=== PATIENT | female | born 1970 | race Two or more races ===

== ENCOUNTER 2016-07-30 10:34 | Inpatient (IN) | payer MEDICAID ==
[~2016-07-30] VITALS: Ht 157.5 cm; Wt 101.5 kg
[~2016-07-30 10:34] MED LIST: ALBUAER3 IN; MON10T PO
[2016-07-30] MEDS ORDERED: ONDANSETRON ODT 4 MG TAB PO ONE (10:45)
[2016-07-30 11:23] LABS: Basophils # (auto) 0 uL; Basophils % (auto) 0.4 % (0.0-2.0); Eosinophils # (auto) 0.1 uL; Eosinophils % (auto) 0.7 % (0.0-7.0); Hematocrit 44.3 % (36.0-46.0); Lymphocytes # (auto) 1.3 uL; Lymphocytes % (auto) 17.8 % (10.0-50.0); Mean Corpuscular Hemoglobin 27.8 pg (28.0-32.0); Mean Corpuscular Hgb Conc. 33.9 g/dL (32.0-36.0); Mean Platelet Volume 8.2 fL (7.4-10.4); Monocytes # (auto) 0.3 uL; Neutrophils # (auto) 5.5 uL; Neutrophils % (auto) 77.1 % (37.0-80.0); Platelet Count (auto) 282 10^3/uL (140-450); White Blood Cell 7.1 10^3/uL (4.4-10.8)
[2016-07-30] MEDS ORDERED: ASPirin 81 mg TAB PO ONE ×2 (11:45→19:15)
[2016-07-30 12:37] LABS: INR 0.93 (0.9-1.15); Partial Thromboplastin Time 28.4 sec (22.64-33.71)
[2016-07-30 12:44] LABS: Albumin 3.8 g/dL (3.4-5.0); Alkaline Phosphatase 122 U/L (45-117); Anion Gap 9 (5-15); Aspartate Aminotransferase 27 U/L (15-37); BUN/Creatinine Ratio 14.8; Bilirubin, Total 0.4 mg/dL (0.2-1.0); Blood Urea Nitrogen 8 mg/dL (7-18); Carbon Dioxide 27 mmol/L (21-32); Chloride 105 mmol/L (98-107); GFR African American 155 mL/min; GFR Non-African American 128 mL/min; Glucose 170 mg/dL (74-106); Magnesium 1.9 mg/dL (1.6-2.6); Potassium 3.7 mmol/L (3.5-5.1); Sodium 141 mmol/L (136-145); Total Protein 7.6 g/dL (6.4-8.2)
[2016-07-30 12:49] LABS: B-Type Natriuretic Peptide 25.31 pg/mL (0-100)
[2016-07-30 13:02] LABS: Temperature: 23.7 C (20.0-25.0)
[2016-07-30] MEDS ORDERED: MORPHINE SULF INJ 2 MG/ML SYRINGE 1ML IV ONE (15:30)
[2016-07-30] MEDS ORDERED: ONDANSETRON HCL 4 MG/2 ML VIAL IV ONE (15:30)
[2016-07-30] MEDS ORDERED: NITROGLYCERIN 0.4 MG SL TAB SL PRN (18:45)
[2016-07-30] MEDS ORDERED: ACETAMINOPHEN 500 MG TAB PO PRN (18:45)
[2016-07-30] MEDS ORDERED: LACTULOSE 20Gm/30ML SOLN PO PRN (18:45)
[2016-07-30] MEDS ORDERED: MORPHINE SULF INJ 2 MG/ML SYRINGE 1ML IV PRN ×2 (18:45)
[2016-07-30] MEDS ORDERED: DEXTROSE (50%) 50ML SYRG IV PRN (18:45)
[2016-07-30] MEDS ORDERED: LORazepam 0.5 MG TAB PO PRN (18:45)
[2016-07-30] MEDS ORDERED: TEMAZEPAM 15 MG CAP PO PRN (18:45)
[2016-07-30] MEDS ORDERED: NITROGLYCERIN 0.2MG/HR TOPICAL PATCH TD ONE (19:15)
[2016-07-30] MEDS: SODIUM CHLORIDE 0.9% 1,000 ML IV SCH (19:20)
[2016-07-30 20:10] VITALS: BP 154/81
[2016-07-30 20:16] LABS: Amylase 35 U/L (25-115)
[2016-07-30] MEDS: PROMETHAZINE HCL 25 MG/ML 1ML IV PRN (21:17)
[2016-07-30] MEDS: HYDROcodone-ACET 5/325MG TAB PO PRN (21:17)
[2016-07-30] MEDS: ACCU-CHEK COMFORT CURVE STRIP VI SCH (21:49)
[2016-07-30] MEDS: ATORVASTATIN 20 MG TAB PO SCH (21:58)
[2016-07-30] MEDS: METOPROLOL TARTRATE 25 MG TAB PO SCH (21:59)
[2016-07-30 22:58] VITALS: BP 154/81
[2016-07-31] MEDS ORDERED: ASPI81CH43 PO (00:10)
[2016-07-31] MEDS ORDERED: CLOP75TA28 PO (00:10)
[2016-07-31 00:38] LABS: Urine RBC None Seen /hpf (0 - 4)
[2016-07-31 00:52] LABS: Urine Bilirubin Negative (Negative); Urine Blood Negative /uL (Negative); Urine Color Yellow (Yellow); Urine Glucose Normal (Normal); Urine Hyaline Cast FEW /lpf (0 - 2); Urine Ketone Negative (Negative); Urine Mucus FEW (None Seen); Urine Nitrite Negative (Negative); Urine Squamous Epithelial Cell FEW /hpf (<5); Urine Urobilinogen Normal (Negative)
[2016-07-31] MEDS: PROMETHAZINE HCL 25 MG/ML 1ML IV PRN (04:27)
[2016-07-31] MEDS: ACCU-CHEK COMFORT CURVE STRIP VI SCH ×4 (05:41→23:32)
[2016-07-31 05:47] VITALS: BP 131/76
[2016-07-31 07:16] LABS: Cholesterol 194 mg/dL (< 200); HDL Cholesterol 49 mg/dL (40-59); LDL Cholesterol 137 mg/dL (< 100); Triglycerides 121 mg/dL (< 150)
[2016-07-31 09:00] VITALS: BP 129/75
[2016-07-31] MEDS: SODIUM CHLORIDE 0.9% 1,000 ML IV SCH ×2 (09:00→22:08)
[2016-07-31] MEDS: NITROGLYCERIN 0.2MG/HR TOPICAL PATCH TD SCH ×2 (10:17→10:45)
[2016-07-31] MEDS: ASPirin 81 mg TAB PO SCH (10:17)
[2016-07-31] MEDS: METOPROLOL TARTRATE 25 MG TAB PO SCH ×2 (10:18→22:08)
[2016-07-31 14:25] VITALS: BP 131/71
[2016-07-31 15:59] VITALS: BP 120/60
[2016-07-31] MEDS: HYDROcodone-ACET 5/325MG TAB PO PRN ×2 (17:18→23:28)
[2016-07-31 20:00] VITALS: BP 124/74
[2016-07-31] MEDS: ATORVASTATIN 20 MG TAB PO SCH (22:08)
[2016-07-31 22:36] VITALS: BP 126/74
[2016-07-31] MEDS ORDERED: LORATADINE 10 MG TAB PO SCH (22:51)
[2016-08-01] MEDS: ACCU-CHEK COMFORT CURVE STRIP VI SCH (05:49)
[2016-08-01 05:51] VITALS: BP 108/68
[2016-08-01 07:32] VITALS: BP 118/74
[2016-08-01 08:00] VITALS: BP 118/74
[2016-08-01] MEDS: ASPirin 81 mg TAB PO SCH (09:45)
[2016-08-01] MEDS: METOPROLOL TARTRATE 25 MG TAB PO SCH (09:46)
[2016-08-01 10:13] VITALS: BP 118/74
[2016-08-01 11:00] VITALS: BP 154/83
== END 2016-08-01 11:11 | disposition home or self-care (01) | DRG 198 ==
LOC: ER 10:34 → OVERFLOW 11:57 → OBSVTOIN 11:58 → CENTRAL 19:35 → TELE-CENTR 20:05
PROVIDERS: ADMIT Family Medicine; ATTEND Internal Medicine
DX: R07.9 Chest pain, unspecified (principal); I25.2 Old myocardial infarction; I25.110 Atherosclerotic heart disease of native coronary artery with unstable angina pectoris; Z68.41 Body mass index [BMI] 40.0-44.9, adult; I10 Essential (primary) hypertension; E66.01 Morbid (severe) obesity due to excess calories; Z95.5 Presence of coronary angioplasty implant and graft; I25.10 Atherosclerotic heart disease of native coronary artery without angina pectoris; Z82.49 Family history of ischemic heart disease and other diseases of the circulatory system; Z80.9 Family history of malignant neoplasm, unspecified; R10.9 Unspecified abdominal pain
CPT/HCPCS: 36415; 71020; 80053; 80061; 80307; 81001; 82150; 82550; 82962; 83036; 83690; 83735; 83880; 84443; 84484; 85025; 85379; 85610; 85652; 85730; 86141; 93005; 93971; 94761; 96374; 96375; G0378; J2405; Q0162

== ENCOUNTER 2016-10-23 15:33 | Inpatient (IN) | payer MEDICAID ==
[~2016-10-23] VITALS: Ht 157.5 cm; Wt 102.3 kg
[~2016-10-23 15:33] MED LIST changes: -ALBUAER3 IN; +ASPI81CH43 PO; +CLOP75TA28 PO; -MON10T PO
[2016-10-23 16:12] LABS: Basophils # (auto) 0 uL; Basophils % (auto) 0.3 % (0.0-2.0); CONDITION Y; Eosinophils # (auto) 0.1 uL; Eosinophils % (auto) 0.8 % (0.0-7.0); Hematocrit 44.7 % (36.0-46.0); Hemoglobin 14.8 g/dL (12.2-16.2); Lymphocytes # (auto) 2.2 uL; Lymphocytes % (auto) 22.1 % (10.0-50.0); Mean Corpuscular Hemoglobin 27.8 pg (28.0-32.0); Mean Corpuscular Hgb Conc. 33.2 g/dL (32.0-36.0); Mean Corpuscular Volume 83.7 fL (80.0-100.0); Mean Platelet Volume 8.5 fL (7.4-10.4); Monocytes # (auto) 0.6 uL; Neutrophils # (auto) 7.1 uL; Neutrophils % (auto) 70.8 % (37.0-80.0); Platelet Count (auto) 252 10^3/uL (140-450); Red Cell Distribution Width 13.8 % (11.6-16.0)
[2016-10-23 16:27] LABS: Albumin 3.7 g/dL (3.4-5.0); Anion Gap 9 (5-15); Aspartate Aminotransferase 21 U/L (15-37); Blood Urea Nitrogen 9 mg/dL (7-18); Calcium 8.8 mg/dL (8.5-10.1); Carbon Dioxide 25 mmol/L (21-32); Chloride 107 mmol/L (98-107); GFR African American 158 mL/min; GFR Non-African American 131 mL/min; Glucose 79 mg/dL (74-106); Magnesium 2.3 mg/dL (1.6-2.6); Potassium 3.9 mmol/L (3.5-5.1); Sodium 141 mmol/L (136-145)
[2016-10-23 16:32] LABS: Alkaline Phosphatase 123 U/L (45-117); Bilirubin, Total 0.3 mg/dL (0.2-1.0); Total Protein 7.5 g/dL (6.4-8.2)
[2016-10-23] MEDS ORDERED: MORPHINE SULF INJ 2 MG/ML SYRINGE 1ML IV ONE (21:45)
[2016-10-23] MEDS ORDERED: ONDANSETRON HCL 4 MG/2 ML VIAL IV ONE (21:45)
[2016-10-23] MEDS ORDERED: cloNIDine HCL 0.1 MG TAB PO ONE (22:00)
[2016-10-23 23:15] LABS: B-Type Natriuretic Peptide 62.33 pg/mL (0-100)
[2016-10-23 23:23] LABS: Temperature: 22.8 C (20.0-25.0)
[2016-10-23] MEDS ORDERED: MORPHINE SULF INJ 2 MG/ML SYRINGE 1ML IV PRN (23:45)
[2016-10-23] MEDS ORDERED: NITROGLYCERIN 0.4 MG SL TAB SL PRN (23:45)
[2016-10-23] MEDS ORDERED: cloNIDine HCL 0.1 MG TAB PO PRN (23:45)
[2016-10-23] MEDS ORDERED: ATORVASTATIN 20 MG TAB PO ONE (23:45)
[2016-10-24] VITALS (7 sets, daily range): BP systolic 108–152; BP diastolic 75–86
[2016-10-24] MEDS: ACETAMINOPHEN 325 MG TAB PO PRN (02:13)
[2016-10-24] MEDS: TEMAZEPAM 15 MG CAP PO PRN ×2 (02:13→22:05)
[2016-10-24 05:38] LABS: Basophils # (auto) 0 uL; Basophils % (auto) 0.2 % (0.0-2.0); CONDITION Y; Eosinophils # (auto) 0.1 uL; Eosinophils % (auto) 0.9 % (0.0-7.0); Hematocrit 38.2 % (36.0-46.0); Hemoglobin 12.7 g/dL (12.2-16.2); Lymphocytes # (auto) 1.9 uL; Lymphocytes % (auto) 26.6 % (10.0-50.0); Mean Corpuscular Hemoglobin 27.7 pg (28.0-32.0); Mean Corpuscular Hgb Conc. 33.3 g/dL (32.0-36.0); Mean Corpuscular Volume 83.3 fL (80.0-100.0); Mean Platelet Volume 8.4 fL (7.4-10.4); Monocytes # (auto) 0.6 uL; Monocytes % (auto) 7.6 % (0.0-12.0); Neutrophils # (auto) 4.7 uL; Neutrophils % (auto) 64.7 % (37.0-80.0); Platelet Count (auto) 229 10^3/uL (140-450); Red Cell Distribution Width 14.1 % (11.6-16.0); White Blood Cell 7.3 10^3/uL (4.4-10.8)
[2016-10-24 05:53] LABS: Albumin 2.9 g/dL (3.4-5.0); Anion Gap 9 (5-15); Aspartate Aminotransferase 17 U/L (15-37); BUN/Creatinine Ratio 16.4; Blood Urea Nitrogen 10 mg/dL (7-18); Carbon Dioxide 27 mmol/L (21-32); Chloride 107 mmol/L (98-107); GFR African American 135 mL/min; GFR Non-African American 111 mL/min; Glucose 98 mg/dL (74-106); Potassium 3.7 mmol/L (3.5-5.1); Sodium 143 mmol/L (136-145)
[2016-10-24 05:58] LABS: Alkaline Phosphatase 97 U/L (45-117); Bilirubin, Total 0.3 mg/dL (0.2-1.0); Total Protein 6.1 g/dL (6.4-8.2)
[2016-10-24] MEDS: HYDROcodone-ACET 5/325MG TAB PO PRN ×3 (08:25→20:39)
[2016-10-24] MEDS: CLOPIDOGREL BISULFATE 75 MG TAB PO SCH (09:51)
[2016-10-24] MEDS: ENOXAPARIN SOD 40 MG/0.4 ML SYRINGE SC SCH (09:51)
[2016-10-24] MEDS: ASPirin 81 mg TAB PO SCH (09:51)
[2016-10-24] MEDS: amLODIPine BESYLATE 5 MG TAB PO SCH (09:52)
[2016-10-24] MEDS: FAMOTIDINE 20 MG TAB PO SCH ×2 (09:52→22:06)
[2016-10-24] MEDS: MONTELUKAST SODIUM 10 MG TAB PO SCH (09:52)
[2016-10-24] MEDS ORDERED: FUROSEMIDE 100 MG/10ML VIAL IV ONE (15:00)
[2016-10-24] MEDS ORDERED: POTASSIUM CHL 10% (20 MEQ/15ML) ORAL SOLN PO ONE (15:00)
[2016-10-24] MEDS: ATORVASTATIN 20 MG TAB PO SCH (22:06)
[2016-10-25 05:30] VITALS: BP 125/81
[2016-10-25 06:49] LABS: Potassium 3.9 mmol/L (3.5-5.1)
[2016-10-25 06:55] LABS: Albumin 3.3 g/dL (3.4-5.0); BUN/Creatinine Ratio 27.5; Calcium 8.5 mg/dL (8.5-10.1)
[2016-10-25 06:58] LABS: Bilirubin, Total 0.4 mg/dL (0.2-1.0); Total Protein 6.7 g/dL (6.4-8.2)
[2016-10-25 07:31] VITALS: BP 129/77
[2016-10-25] MEDS: HYDROcodone-ACET 5/325MG TAB PO PRN ×3 (08:49→20:20)
[2016-10-25] MEDS: ENOXAPARIN SOD 40 MG/0.4 ML SYRINGE SC SCH (09:36)
[2016-10-25] MEDS: CLOPIDOGREL BISULFATE 75 MG TAB PO SCH (09:36)
[2016-10-25] MEDS: MONTELUKAST SODIUM 10 MG TAB PO SCH (09:36)
[2016-10-25] MEDS: ASPirin 81 mg TAB PO SCH (09:36)
[2016-10-25] MEDS: FAMOTIDINE 20 MG TAB PO SCH ×2 (09:36→22:01)
[2016-10-25] MEDS: amLODIPine BESYLATE 5 MG TAB PO SCH (09:36)
[2016-10-25] MEDS ORDERED: FUROSEMIDE 40 MG/4 ML VIAL IV ONE (10:45)
[2016-10-25] MEDS: SPIRONOLACTONE 25 MG TAB PO SCH ×2 (10:54→17:55)
[2016-10-25] MEDS: POTASSIUM CHL 20 Meq TABLET PO SCH ×2 (10:54→22:01)
[2016-10-25] MEDS: ONDANSETRON HCL 4 MG/2 ML VIAL IV PRN ×2 (11:00→17:12)
[2016-10-25 14:15] VITALS: BP 139/56
[2016-10-25 16:19] VITALS: BP 127/87
[2016-10-25] MEDS ORDERED: diphenhdrAMINE HCL 25 MG CAP PO ONE (17:00)
[2016-10-25] MEDS: ACETAMINOPHEN 325 MG TAB PO PRN (17:15)
[2016-10-25] MEDS: ATORVASTATIN 20 MG TAB PO SCH (22:01)
[2016-10-26 06:00] VITALS: BP 123/83
[2016-10-26] MEDS: SPIRONOLACTONE 25 MG TAB PO SCH ×2 (06:14→18:23)
[2016-10-26] MEDS: HYDROcodone-ACET 5/325MG TAB PO PRN (06:50)
[2016-10-26] MEDS: ONDANSETRON HCL 4 MG/2 ML VIAL IV PRN ×2 (08:41→16:44)
[2016-10-26 09:00] VITALS: BP 143/86
[2016-10-26] MEDS: CLOPIDOGREL BISULFATE 75 MG TAB PO SCH (09:29)
[2016-10-26] MEDS: ENOXAPARIN SOD 40 MG/0.4 ML SYRINGE SC SCH (09:29)
[2016-10-26] MEDS: ASPirin 81 mg TAB PO SCH (09:30)
[2016-10-26] MEDS: amLODIPine BESYLATE 5 MG TAB PO SCH (09:31)
[2016-10-26] MEDS: POTASSIUM CHL 20 Meq TABLET PO SCH ×2 (09:31→21:17)
[2016-10-26] MEDS: FUROSEMIDE 40 MG/4 ML VIAL IV SCH (09:31)
[2016-10-26] MEDS: MONTELUKAST SODIUM 10 MG TAB PO SCH (09:31)
[2016-10-26] MEDS: FAMOTIDINE 20 MG TAB PO SCH ×2 (09:31→21:18)
[2016-10-26] MEDS: DOCUSATE SOD 100 MG CAP PO SCH ×2 (12:00→20:57)
[2016-10-26 12:25] VITALS: BP 144/83
[2016-10-26] MEDS: ACETAMINOPHEN 325 MG TAB PO PRN (16:43)
[2016-10-26 17:12] VITALS: BP 151/98
[2016-10-26 20:38] LABS: Urine Bilirubin Negative (Negative); Urine Color Yellow (Yellow); Urine Glucose Normal (Normal); Urine Urobilinogen Normal (Negative)
[2016-10-26 20:39] LABS: Urine Ketone Negative (Negative); Urine Nitrite Negative (Negative); Urine RBC 52 /hpf (0 - 4); Urine Squamous Epithelial Cell FEW /hpf (<5); Urine WBC Clumps PRESENT /hpf (None Seen)
[2016-10-26] MEDS: ATORVASTATIN 20 MG TAB PO SCH (21:18)
[2016-10-26 21:31] LABS: Urine Blood 2+ /uL (Negative)
[2016-10-26 21:49] VITALS: BP 161/100
[2016-10-26] MEDS ORDERED: METOPROLOL SUCCINATE XL 50 MG TAB PO ONE (23:00)
[2016-10-26] MEDS ORDERED: LISINOPRIL 20 MG TAB PO ONE (23:00)
[2016-10-26] MEDS ORDERED: CIPROFLOXACIN HCL 500 MG TAB PO ONE (23:00)
[2016-10-26] MEDS: MORPHINE SULF INJ 2 MG/ML SYRINGE 1ML IV PRN (23:32)
[2016-10-27] MEDS: ONDANSETRON HCL 4 MG/2 ML VIAL IV PRN (03:19)
[2016-10-27] MEDS: MORPHINE SULF INJ 2 MG/ML SYRINGE 1ML IV PRN (03:43)
[2016-10-27 04:53] VITALS: BP 132/90
[2016-10-27] MEDS: SPIRONOLACTONE 25 MG TAB PO SCH ×2 (05:56→17:40)
[2016-10-27] MEDS ORDERED: ADENOSINE 86 MG in GIVE UN-DILUTED 0 ML IV ONE (09:00)
[2016-10-27] MEDS: MONTELUKAST SODIUM 10 MG TAB PO SCH (10:00)
[2016-10-27] MEDS: FAMOTIDINE 20 MG TAB PO SCH ×2 (10:00→22:14)
[2016-10-27] MEDS: FUROSEMIDE 40 MG/4 ML VIAL IV SCH (10:00)
[2016-10-27] MEDS: ENOXAPARIN SOD 40 MG/0.4 ML SYRINGE SC SCH (10:00)
[2016-10-27] MEDS: CLOPIDOGREL BISULFATE 75 MG TAB PO SCH (10:00)
[2016-10-27] MEDS: DOCUSATE SOD 100 MG CAP PO SCH ×2 (10:50→22:13)
[2016-10-27] MEDS: METOPROLOL SUCCINATE XL 50 MG TAB PO SCH ×2 (10:52→22:14)
[2016-10-27] MEDS: CIPROFLOXACIN HCL 500 MG TAB PO SCH ×2 (10:53→22:13)
[2016-10-27] MEDS: LISINOPRIL 20 MG TAB PO SCH (10:53)
[2016-10-27] MEDS: ASPirin 81 mg TAB PO SCH (10:53)
[2016-10-27] MEDS: amLODIPine BESYLATE 5 MG TAB PO SCH (10:54)
[2016-10-27] MEDS: POTASSIUM CHL 20 Meq TABLET PO SCH ×2 (10:54→22:14)
[2016-10-27 12:09] VITALS: BP 150/82
[2016-10-27 16:58] VITALS: BP 101/62
[2016-10-27] MEDS ORDERED: LORazepam 2MG/ML-1ML VIAL IV PRN (17:15)
[2016-10-27] MEDS: ACETAMINOPHEN 325 MG TAB PO PRN (20:39)
[2016-10-27 22:00] VITALS: BP 123/67
[2016-10-27] MEDS ORDERED: ATORVASTATIN 20 MG TAB PO SCH (22:00)
[2016-10-28] MEDS: SPIRONOLACTONE 25 MG TAB PO SCH (05:37)
[2016-10-28 07:06] LABS: Basophils # (auto) 0 uL; Basophils % (auto) 0.2 % (0.0-2.0); CONDITION Y; Eosinophils # (auto) 0.1 uL; Eosinophils % (auto) 0.7 % (0.0-7.0); Hematocrit 45.1 % (36.0-46.0); Hemoglobin 15.3 g/dL (12.2-16.2); Lymphocytes # (auto) 1.9 uL; Lymphocytes % (auto) 20.6 % (10.0-50.0); Mean Corpuscular Hemoglobin 28.4 pg (28.0-32.0); Mean Corpuscular Volume 83.6 fL (80.0-100.0); Mean Platelet Volume 8.4 fL (7.4-10.4); Monocytes # (auto) 0.8 uL; Monocytes % (auto) 8.6 % (0.0-12.0); Neutrophils # (auto) 6.5 uL; Neutrophils % (auto) 69.9 % (37.0-80.0); Platelet Count (auto) 258 10^3/uL (140-450); Red Cell Distribution Width 14.3 % (11.6-16.0); White Blood Cell 9.3 10^3/uL (4.4-10.8)
[2016-10-28 07:45] LABS: Potassium 4.6 mmol/L (3.5-5.1)
[2016-10-28 07:59] LABS: Albumin 3.5 g/dL (3.4-5.0); Calcium 8.6 mg/dL (8.5-10.1); Total Protein 7.1 g/dL (6.4-8.2)
[2016-10-28 08:00] VITALS: BP 144/75
[2016-10-28 08:14] LABS: Bilirubin, Total 0.6 mg/dL (0.2-1.0)
[2016-10-28 09:00] VITALS: BP 107/58
[2016-10-28] MEDS: ENOXAPARIN SOD 40 MG/0.4 ML SYRINGE SC SCH (09:37)
[2016-10-28] MEDS: ACETAMINOPHEN 325 MG TAB PO PRN (09:37)
[2016-10-28] MEDS: CIPROFLOXACIN HCL 500 MG TAB PO SCH (09:37)
[2016-10-28] MEDS: MONTELUKAST SODIUM 10 MG TAB PO SCH (09:38)
[2016-10-28] MEDS: DOCUSATE SOD 100 MG CAP PO SCH (09:38)
[2016-10-28] MEDS: CLOPIDOGREL BISULFATE 75 MG TAB PO SCH (09:38)
[2016-10-28] MEDS: POTASSIUM CHL 20 Meq TABLET PO SCH (09:38)
[2016-10-28] MEDS: ASPirin 81 mg TAB PO SCH (09:38)
[2016-10-28] MEDS: FAMOTIDINE 20 MG TAB PO SCH (09:51)
[2016-10-28] MEDS: FUROSEMIDE 40 MG/4 ML VIAL IV SCH (10:00)
[2016-10-28] MEDS: amLODIPine BESYLATE 5 MG TAB PO SCH (10:00)
[2016-10-28] MEDS: LISINOPRIL 20 MG TAB PO SCH (10:00)
[2016-10-28] MEDS: METOPROLOL SUCCINATE XL 50 MG TAB PO SCH (10:00)
[2016-10-28 12:00] VITALS: BP 107/58
[2016-10-28 13:00] VITALS: BP 125/80
== END 2016-10-28 14:20 | disposition home or self-care (01) | DRG 194 ==
LOC: ER 15:38 → TELE 15:39 → TELE-CENTR 10-24 01:40
PROVIDERS: ADMIT Nurse Practitioner; ATTEND Internal Medicine
DX: I50.33 Acute on chronic diastolic (congestive) heart failure (principal); Z68.41 Body mass index [BMI] 40.0-44.9, adult; N39.0 Urinary tract infection, site not specified; M94.0 Chondrocostal junction syndrome [Tietze]; I11.0 Hypertensive heart disease with heart failure; I25.2 Old myocardial infarction; E66.01 Morbid (severe) obesity due to excess calories; I25.10 Atherosclerotic heart disease of native coronary artery without angina pectoris; Z91.14 Patient's other noncompliance with medication regimen; Z79.02 Long term (current) use of antithrombotics/antiplatelets; Z79.82 Long term (current) use of aspirin; Z79.899 Other long term (current) drug therapy; Z95.5 Presence of coronary angioplasty implant and graft; Z88.5 Allergy status to narcotic agent; Z80.9 Family history of malignant neoplasm, unspecified; Z82.49 Family history of ischemic heart disease and other diseases of the circulatory system
CPT/HCPCS: 36415; 70450; 71020; 78452; 80053; 81001; 83735; 83880; 84484; 84702; 85025; 87086; 87088; 87186; 93005; 93017; 93306; 93886; 96374; 96375; 99291; J0153; J2405

== ENCOUNTER 2017-08-21 23:41 | Inpatient (IN) | payer MEDICAID, OTHER ==
[~2017-08-21] VITALS: Ht 157.5 cm; Wt 105.9 kg
[2017-08-22 01:44] LABS: Basophils # (auto) 0 uL; Basophils % (auto) 0.4 % (0.0-2.0); Eosinophils # (auto) 0.1 uL; Eosinophils % (auto) 1.3 % (0.0-7.0); Hematocrit 45.3 % (36.0-46.0); Hemoglobin 15.3 g/dL (12.2-16.2); Lymphocytes # (auto) 1.9 uL; Lymphocytes % (auto) 24.2 % (10.0-50.0); Mean Corpuscular Hemoglobin 28.1 pg (28.0-32.0); Mean Corpuscular Hgb Conc. 33.7 g/dL (32.0-36.0); Mean Corpuscular Volume 83.2 fL (80.0-100.0); Monocytes # (auto) 0.5 uL; Monocytes % (auto) 6.9 % (0.0-12.0); Neutrophils # (auto) 5.2 uL; Neutrophils % (auto) 67.2 % (37.0-80.0); Nucleated Red Blood Cells % 0.1 %; Platelet Count (auto) 259 10^3/uL (140-450); Red Blood Cells 5.44 10^6/uL (4.0-5.20); Red Cell Distribution Width 13.8 % (11.8-14.3); White Blood Cell 7.7 10^3/uL (4.4-10.8)
[2017-08-22 02:02] LABS: Alanine Aminotransferase 66 U/L (13-56); Albumin 3.8 g/dL (3.4-5.0); Anion Gap 9 (5-15); Aspartate Aminotransferase 35 U/L (15-37); BUN/Creatinine Ratio 25.8; Blood Urea Nitrogen 16 mg/dL (7-18); Calcium 8.5 mg/dL (8.5-10.1); Carbon Dioxide 23 mmol/L (21-32); Chloride 111 mmol/L (98-107); GFR African American 132 mL/min; GFR Non-African American 109 mL/min; Glucose 112 mg/dL (74-106); Magnesium 2.1 mg/dL (1.6-2.6); Potassium 4.1 mmol/L (3.5-5.1); Sodium 143 mmol/L (136-145)
[2017-08-22 02:07] LABS: Alkaline Phosphatase 160 U/L (45-117); Bilirubin, Total 0.3 mg/dL (0.2-1.0); Total Protein 7.7 g/dL (6.4-8.2)
[2017-08-22 02:13] LABS: Urine Bacteria FEW /hpf (None Seen); Urine Blood Negative /uL (Negative); Urine Specific Gravity 1.019 (1.001-1.035); Urine WBC 15 /hpf (0 - 5)
[2017-08-22] MEDS ORDERED: ASPirin 325 MG TAB PO ONE (05:15)
[2017-08-22] MEDS ORDERED: LORazepam 0.5 MG TAB PO ONE (05:15)
[2017-08-22] MEDS ORDERED: KETOROLAC TROMETH 30 MG/ML 1ML VIAL IV ONE (05:15)
[2017-08-22] MEDS ORDERED: ONDANSETRON HCL 4 MG/2 ML VIAL IV PRN (07:00)
[2017-08-22] MEDS ORDERED: ACETAMINOPHEN 500 MG TAB PO PRN (07:00)
[2017-08-22] MEDS ORDERED: NITROGLYCERIN 0.4 MG SL TAB SL PRN (07:00)
[2017-08-22] MEDS ORDERED: NEOMYCIN-BACITRACIN-POLYM UNITDOSE PKG TOP OINT TOP ONE (07:36)
[2017-08-22] MEDS ORDERED: cefTRIAXone 1GM/10ml IVPUSH 10 ML IV ONE (07:45)
[2017-08-22] MEDS: METOPROLOL TARTRATE 25 MG TAB PO SCH ×2 (10:57→21:02)
[2017-08-22] MEDS: LISINOPRIL 20 MG TAB PO SCH (10:58)
[2017-08-22] MEDS: CLOPIDOGREL BISULFATE 75 MG TAB PO SCH (10:58)
[2017-08-22 13:00] VITALS: BP 134/75
[2017-08-22] MEDS: HYDROcodone-ACET 5/325MG TAB PO PRN (14:01)
[2017-08-22 17:00] VITALS: BP_SYST 113; BP_SYST 152; BP_DIAS 101; BP_DIAS 59
[2017-08-22 22:00] VITALS: BP 119/80
[2017-08-23 05:16] VITALS: BP 110/70
[2017-08-23 05:56] LABS: Basophils # (auto) 0 uL; Basophils % (auto) 0.3 % (0.0-2.0); Eosinophils # (auto) 0.1 uL; Eosinophils % (auto) 1.9 % (0.0-7.0); Hematocrit 41.1 % (36.0-46.0); Lymphocytes # (auto) 1.8 uL; Lymphocytes % (auto) 26.4 % (10.0-50.0); Mean Corpuscular Hemoglobin 28.3 pg (28.0-32.0); Mean Corpuscular Hgb Conc. 34.1 g/dL (32.0-36.0); Mean Corpuscular Volume 83.1 fL (80.0-100.0); Monocytes # (auto) 0.5 uL; Monocytes % (auto) 7.6 % (0.0-12.0); Neutrophils # (auto) 4.4 uL; Neutrophils % (auto) 63.8 % (37.0-80.0); Nucleated Red Blood Cells % 0.1 %; Platelet Count (auto) 232 10^3/uL (140-450); Red Blood Cells 4.94 10^6/uL (4.0-5.20); Red Cell Distribution Width 13.6 % (11.8-14.3); White Blood Cell 6.8 10^3/uL (4.4-10.8)
[2017-08-23 06:16] LABS: Calcium 8.6 mg/dL (8.5-10.1); Potassium 4.2 mmol/L (3.5-5.1)
[2017-08-23 06:21] LABS: BUN/Creatinine Ratio 25.9
[2017-08-23 09:00] VITALS: BP 105/60
[2017-08-23] MEDS ORDERED: cefTRIAXone 1GM/10ml IVPUSH 10 ML IV SCH (09:00)
[2017-08-23] MEDS ORDERED: ASPirin-EC 81 mg tab PO SCH (10:00)
[2017-08-23] MEDS: CLOPIDOGREL BISULFATE 75 MG TAB PO SCH (10:08)
[2017-08-23] MEDS: METOPROLOL TARTRATE 25 MG TAB PO SCH (10:09)
[2017-08-23] MEDS: LISINOPRIL 20 MG TAB PO SCH (10:09)
[2017-08-23] MEDS: HYDROcodone-ACET 5/325MG TAB PO PRN (10:13)
[2017-08-23 16:01] VITALS: BP 105/62
== END 2017-08-23 16:45 | disposition home or self-care (01) | DRG 198 ==
LOC: ER 23:41 → TELE 23:42 → TELE-WESTW 08-22 09:57
PROVIDERS: ADMIT Nurse Practitioner Family; ATTEND Nurse Practitioner Family
DX: I25.119 Atherosclerotic heart disease of native coronary artery with unspecified angina pectoris (principal); N30.00 Acute cystitis without hematuria; I10 Essential (primary) hypertension; K21.9 Gastro-esophageal reflux disease without esophagitis; J45.909 Unspecified asthma, uncomplicated; E66.01 Morbid (severe) obesity due to excess calories; R00.2 Palpitations; M79.602 Pain in left arm; I25.2 Old myocardial infarction; Z95.5 Presence of coronary angioplasty implant and graft; Z68.41 Body mass index [BMI] 40.0-44.9, adult; Z88.5 Allergy status to narcotic agent
CPT/HCPCS: 36415; 71045; 80048; 80053; 81001; 81025; 83735; 83880; 84443; 84484; 85025; 87086; 93005; 96374; 96375; J1885

== ENCOUNTER 2017-12-11 22:23 | Emergency (ER) | payer MEDICAID ==
[~2017-12-11] VITALS: Ht 157.5 cm; Wt 108.9 kg
[2017-12-12 00:34] LABS: Basophils # (auto) 0 uL; Basophils % (auto) 0.4 % (0.0-2.0); Eosinophils # (auto) 0.1 uL; Eosinophils % (auto) 1.7 % (0.0-7.0); Hematocrit 44.7 % (36.0-46.0); Hemoglobin 14.6 g/dL (12.2-16.2); Lymphocytes # (auto) 2.3 uL; Lymphocytes % (auto) 28.2 % (10.0-50.0); Mean Corpuscular Hemoglobin 27.2 pg (28.0-32.0); Mean Corpuscular Hgb Conc. 32.7 g/dL (32.0-36.0); Mean Corpuscular Volume 83.3 fL (80.0-100.0); Monocytes # (auto) 0.6 uL; Monocytes % (auto) 7.2 % (0.0-12.0); Neutrophils % (auto) 62.5 % (37.0-80.0); Platelet Count (auto) 234 10^3/uL (140-450); Red Blood Cells 5.36 10^6/uL (4.0-5.20); Red Cell Distribution Width 13.7 % (11.8-14.3)
[2017-12-12 00:51] LABS: Alanine Aminotransferase 72 U/L (13-56); Albumin 3.7 g/dL (3.4-5.0); Anion Gap 9 (5-15); Aspartate Aminotransferase 42 U/L (15-37); BUN/Creatinine Ratio 29.5; Blood Urea Nitrogen 18 mg/dL (7-18); Calcium 8.6 mg/dL (8.5-10.1); Carbon Dioxide 25 mmol/L (21-32); Chloride 107 mmol/L (98-107); GFR African American 134 mL/min; GFR Non-African American 111 mL/min; Glucose 101 mg/dL (74-106); Magnesium 2.1 mg/dL (1.6-2.6); Sodium 141 mmol/L (136-145)
[2017-12-12 00:56] LABS: Alkaline Phosphatase 132 U/L (45-117); Bilirubin, Total 0.3 mg/dL (0.2-1.0); Total Protein 7.5 g/dL (6.4-8.2)
[2017-12-12 01:06] LABS: INR 0.88 (0.9-1.15); Prothrombin Time 9.5 sec (9.27-12.13)
[2017-12-12 07:24] VITALS: BP 146/87
== END 2017-12-12 08:04 | disposition home or self-care (01) ==
LOC: ER 22:36
DX: R07.89 Other chest pain (principal); I25.10 Atherosclerotic heart disease of native coronary artery without angina pectoris; I10 Essential (primary) hypertension; I25.2 Old myocardial infarction; Z88.5 Allergy status to narcotic agent; Z79.01 Long term (current) use of anticoagulants; Z79.82 Long term (current) use of aspirin; Z98.61 Coronary angioplasty status
CPT/HCPCS: 36415; 71046; 80053; 83735; 84484; 85025; 85610; 85730; 93005

== ENCOUNTER 2018-04-14 22:57 | Emergency (ER) | payer MEDICAID ==
[~2018-04-14] VITALS: Ht 157.5 cm; Wt 104.3 kg
[2018-04-14] MEDS ORDERED: cloNIDine HCL 0.1 MG TAB ONE (23:24)
[2018-04-14] MEDS ORDERED: cloNIDine HCL 0.1 MG TAB PO ONE (23:30)
[2018-04-15 00:01] LABS: Basophils # (auto) 0 uL; Basophils % (auto) 0.3 % (0.0-2.0); Eosinophils # (auto) 0.1 uL; Eosinophils % (auto) 0.7 % (0.0-7.0); Hematocrit 44.3 % (36.0-46.0); Hemoglobin 14.9 g/dL (12.2-16.2); Lymphocytes # (auto) 2.1 uL; Lymphocytes % (auto) 18.9 % (10.0-50.0); Mean Corpuscular Hemoglobin 27.8 pg (28.0-32.0); Mean Corpuscular Hgb Conc. 33.5 g/dL (32.0-36.0); Mean Corpuscular Volume 82.9 fL (80.0-100.0); Monocytes # (auto) 0.6 uL; Monocytes % (auto) 5.4 % (0.0-12.0); Neutrophils # (auto) 8.4 uL; Neutrophils % (auto) 74.7 % (37.0-80.0); Platelet Count (auto) 250 10^3/uL (140-450); Red Blood Cells 5.34 10^6/uL (4.0-5.20); Red Cell Distribution Width 13.4 % (11.8-14.3); White Blood Cell 11.2 10^3/uL (4.4-10.8)
[2018-04-15 00:17] LABS: Albumin 3.8 g/dL (3.4-5.0); Amylase 40 U/L (25-115); Anion Gap 8 (5-15); Blood Urea Nitrogen 17 mg/dL (7-18); Calcium 8.9 mg/dL (8.5-10.1); Carbon Dioxide 26 mmol/L (21-32); Chloride 106 mmol/L (98-107); GFR African American 129 mL/min; GFR Non-African American 107 mL/min; Glucose 131 mg/dL (74-106); Lipase 123 U/L (73-393); Magnesium 1.9 mg/dL (1.6-2.6); Potassium 3.9 mmol/L (3.5-5.1); Sodium 140 mmol/L (136-145)
[2018-04-15 00:19] LABS: INR 0.9 (0.9-1.15); Partial Thromboplastin Time 28.7 sec (23.78-33.04); Prothrombin Time 9.7 sec (9.27-12.13)
[2018-04-15 00:26] LABS: Alanine Aminotransferase 40 U/L (13-56); Alkaline Phosphatase 178 U/L (45-117); Aspartate Aminotransferase 22 U/L (15-37); Bilirubin, Total 0.4 mg/dL (0.2-1.0); Total Protein 7.8 g/dL (6.4-8.2)
[2018-04-15 01:35] LABS: Urine Bacteria MOD /hpf (None Seen); Urine Blood 2+ /uL (Negative); Urine Specific Gravity 1.004 (1.001-1.035); Urine WBC 41 /hpf (0 - 5)
[2018-04-15 03:49] VITALS: BP 164/81
== END 2018-04-15 05:14 | disposition left against medical advice (07) ==
LOC: ER 23:02
DX: R10.2 Pelvic and perineal pain (principal); Z53.21 Procedure and treatment not carried out due to patient leaving prior to being seen by health care provider
CPT/HCPCS: 36415; 80053; 81001; 82150; 83690; 83735; 84484; 85025; 85610; 85730; 86850; 86900; 86901; 93005

== ENCOUNTER 2018-10-04 11:50 | Emergency (ER) | payer MEDICAID ==
[~2018-10-04] VITALS: Ht 157.5 cm; Wt 104.3 kg
[2018-10-04 15:29] VITALS: BP 141/80
== END 2018-10-04 15:45 | disposition home or self-care (01) ==
LOC: ER 11:50
DX: S86.911A Strain of unspecified muscle(s) and tendon(s) at lower leg level, right leg, initial encounter (principal); E78.5 Hyperlipidemia, unspecified; I10 Essential (primary) hypertension; I25.2 Old myocardial infarction; Z88.6 Allergy status to analgesic agent; Z98.61 Coronary angioplasty status; X58.XXXA Exposure to other specified factors, initial encounter; Y93.89 Activity, other specified; Y92.89 Other specified places as the place of occurrence of the external cause; Y99.8 Other external cause status
CPT/HCPCS: 93971

== ENCOUNTER 2019-12-28 13:38 | Emergency (ER) | payer MEDICAID ==
[~2019-12-28] VITALS: Ht 157.5 cm; Wt 113.4 kg
[2019-12-28 13:58] VITALS: BP 143/78
== END 2019-12-28 15:27 | disposition home or self-care (01) ==
LOC: ER 13:38
DX: S61.511A Laceration without foreign body of right wrist, initial encounter (principal); E78.5 Hyperlipidemia, unspecified; I10 Essential (primary) hypertension; I25.2 Old myocardial infarction; Z98.61 Coronary angioplasty status; W22.8XXA Striking against or struck by other objects, initial encounter; Y93.89 Activity, other specified; Y92.89 Other specified places as the place of occurrence of the external cause; Y99.8 Other external cause status
CPT/HCPCS: 12001

== ENCOUNTER 2020-09-26 18:40 | Emergency (ER) | payer MEDICAID ==
[~2020-09-26] VITALS: Ht 157.5 cm; Wt 104.3 kg
[2020-09-26 19:29] LABS: Basophils # (auto) 0.1 10 ^3/uL (0-0.2); Basophils % (auto) 0.6 % (0.0-2.0); Eosinophils # (auto) 0.2 10 ^3/uL (0-0.8); Eosinophils % (auto) 1.7 % (0.0-7.0); Hematocrit 43.1 % (36.0-46.0); Hemoglobin 14.4 g/dL (12.2-16.2); Lymphocytes # (auto) 2.4 10 ^3/uL (0.4-5.4); Lymphocytes % (auto) 26.3 % (10.0-50.0); Mean Corpuscular Hemoglobin 27.3 pg (28.0-32.0); Mean Corpuscular Hgb Conc. 33.5 g/dL (32.0-36.0); Mean Corpuscular Volume 81.7 fL (80.0-100.0); Monocytes # (auto) 0.5 10 ^3/uL (0-1.3); Monocytes % (auto) 5.5 % (0.0-12.0); Neutrophils # (auto) 5.9 10 ^3/uL (1.6-8.6); Neutrophils % (auto) 65.9 % (37.0-80.0); Nucleated Red Blood Cells % 0.2 %; Red Blood Cells 5.27 10^6/uL (4.0-5.20); Red Cell Distribution Width 14.1 % (11.8-14.3)
[2020-09-26 19:36] LABS: Albumin 3.7 g/dL (3.4-5.0); Anion Gap 4 (5-15); Calcium 8.8 mg/dL (8.5-10.1); Carbon Dioxide 26 mmol/L (21-32); Chloride 110 mmol/L (98-107); Glucose 135 mg/dL (74-106); Sodium 140 mmol/L (136-145)
[2020-09-26 19:41] LABS: Alanine Aminotransferase 43 U/L (13-56); Alkaline Phosphatase 155 U/L (45-117); Aspartate Aminotransferase 24 U/L (15-37); BUN/Creatinine Ratio 18.2; Bilirubin, Total 0.3 mg/dL (0.2-1.0); Blood Urea Nitrogen 12 mg/dL (7-18); GFR African American 121 mL/min; GFR Non-African American 100 mL/min; Total Protein 7.4 g/dL (6.4-8.2)
[2020-09-27 06:58] VITALS: BP 137/79
== END 2020-09-27 07:14 | disposition home or self-care (01) ==
LOC: ER 18:43
DX: R20.2 Paresthesia of skin (principal); R07.89 Other chest pain; R51.9 Headache, unspecified; I10 Essential (primary) hypertension; I25.2 Old myocardial infarction; I25.10 Atherosclerotic heart disease of native coronary artery without angina pectoris; E78.5 Hyperlipidemia, unspecified; Z88.5 Allergy status to narcotic agent; Z79.82 Long term (current) use of aspirin; Z79.899 Other long term (current) drug therapy; Z98.890 Other specified postprocedural states
CPT/HCPCS: 36415; 70450; 71045; 80053; 84484; 85025; 93005

== ENCOUNTER 2021-05-28 13:17 | Emergency (ER) | payer MEDICAID ==
[~2021-05-28] VITALS: Ht 157.5 cm; Wt 104.3 kg
[2021-05-28 13:17] VITALS: BP 179/84
[2021-05-28] MEDS ORDERED: BENZOCAINE (DENTAL) 20 % SPRAY 60ML MT ONE (14:45)
[2021-05-28] MEDS ORDERED: KETOROLAC TROMETH 60MG/2ML VIAL IM ONE (14:45)
== END 2021-05-28 15:06 | disposition home or self-care (01) ==
LOC: ER 13:17
DX: K02.9 Dental caries, unspecified (principal); I10 Essential (primary) hypertension; I25.2 Old myocardial infarction; E78.5 Hyperlipidemia, unspecified; Z79.01 Long term (current) use of anticoagulants; Z79.82 Long term (current) use of aspirin; Z88.5 Allergy status to narcotic agent
CPT/HCPCS: 96372; 99283; J1885

== ENCOUNTER 2021-08-10 17:36 | Emergency (ER) | payer MEDICAID ==
[~2021-08-10] VITALS: Ht 157.5 cm; Wt 104.3 kg
[2021-08-10 20:07] LABS: Eosinophils # (auto) 0 10 ^3/uL (0-0.8); Monocytes # (auto) 0.4 10 ^3/uL (0-1.3); Nucleated Red Blood Cells % 0.1 %; Red Cell Distribution Width 13.8 % (11.8-14.3)
[2021-08-10 20:09] LABS: Urine Bacteria NONE SEEN /hpf (None Seen); Urine Blood Negative /uL (Negative); Urine Specific Gravity 1.007 (1.001-1.035); Urine WBC 18 /hpf (0 - 5)
[2021-08-10 20:10] LABS: Basophils # (auto) 0.1 10 ^3/uL (0-0.2); Basophils % (auto) 0.5 % (0.0-2.0); Eosinophils % (auto) 0.1 % (0.0-7.0); Hematocrit 46.9 % (36.0-46.0); Hemoglobin 16.1 g/dL (12.2-16.2); Lymphocytes # (auto) 1.3 10 ^3/uL (0.4-5.4); Lymphocytes % (auto) 10.4 % (10.0-50.0); Mean Corpuscular Hemoglobin 28.2 pg (28.0-32.0); Mean Corpuscular Hgb Conc. 34.4 g/dL (32.0-36.0); Mean Corpuscular Volume 82.2 fL (80.0-100.0); Monocytes % (auto) 3.7 % (0.0-12.0); Neutrophils # (auto) 10.2 10 ^3/uL (1.6-8.6); Neutrophils % (auto) 85.3 % (37.0-80.0); Red Blood Cells 5.71 10^6/uL (4.0-5.20)
[2021-08-10 20:22] LABS: Albumin 3.7 g/dL (3.4-5.0); BUN/Creatinine Ratio 24.6; Calcium 9.3 mg/dL (8.5-10.1); Potassium 4.4 mmol/L (3.5-5.1)
[2021-08-10 20:24] LABS: INR 0.94 (0.9-1.15); Partial Thromboplastin Time 28.2 sec (23.6-33.0)
[2021-08-10 20:25] LABS: Bilirubin, Total 0.4 mg/dL (0.2-1.0)
[2021-08-10 20:52] VITALS: BP 163/84
== END 2021-08-10 21:15 | disposition home or self-care (01) ==
LOC: ER 17:36
DX: R06.00 Dyspnea, unspecified (principal); I10 Essential (primary) hypertension; I25.10 Atherosclerotic heart disease of native coronary artery without angina pectoris; I25.2 Old myocardial infarction; E78.5 Hyperlipidemia, unspecified; Z79.01 Long term (current) use of anticoagulants; Z79.82 Long term (current) use of aspirin; Z88.5 Allergy status to narcotic agent
CPT/HCPCS: 36415; 71045; 80053; 81001; 83880; 84484; 85025; 85610; 85730; 93005

== ENCOUNTER 2021-09-21 22:20 | Emergency (ER) | payer MEDICAID ==
[2021-09-21 22:20] VITALS: BP 161/92
[2021-09-21 23:38] LABS: Basophils # (auto) 0 10 ^3/uL (0-0.2); Basophils % (auto) 0.3 % (0.0-2.0); Eosinophils # (auto) 0.1 10 ^3/uL (0-0.8); Eosinophils % (auto) 0.6 % (0.0-7.0); Hematocrit 43.3 % (36.0-46.0); Hemoglobin 14.6 g/dL (12.2-16.2); Lymphocytes # (auto) 2.1 10 ^3/uL (0.4-5.4); Lymphocytes % (auto) 18.9 % (10.0-50.0); Mean Corpuscular Hemoglobin 27.3 pg (28.0-32.0); Mean Corpuscular Hgb Conc. 33.7 g/dL (32.0-36.0); Mean Corpuscular Volume 81.2 fL (80.0-100.0); Monocytes # (auto) 0.6 10 ^3/uL (0-1.3); Monocytes % (auto) 5.7 % (0.0-12.0); Neutrophils # (auto) 8.4 10 ^3/uL (1.6-8.6); Neutrophils % (auto) 74.5 % (37.0-80.0); Red Blood Cells 5.34 10^6/uL (4.0-5.20); Red Cell Distribution Width 13.6 % (11.8-14.3); White Blood Cell 11.2 10^3/uL (4.4-10.8)
[2021-09-21 23:43] LABS: Urine Bacteria MOD /hpf (None Seen); Urine Blood 3+ /uL (Negative); Urine Specific Gravity 1.003 (1.001-1.035); Urine WBC 91 /hpf (0 - 5)
[2021-09-21 23:55] LABS: Calcium 9.3 mg/dL (8.5-10.1); Potassium 3.8 mmol/L (3.5-5.1)
[2021-09-22 00:04] LABS: BUN/Creatinine Ratio 19.7; Bilirubin, Total 0.6 mg/dL (0.2-1.0); Total Protein 7.6 g/dL (6.4-8.2)
[2021-09-22] MEDS ORDERED: ACETAMINOPHEN 325 MG TAB PO ONE (02:00)
[2021-09-22] MEDS ORDERED: CEPH-322 PO (06:03)
== END 2021-09-22 08:47 | disposition left against medical advice (07) ==
LOC: ER 22:20
DX: N30.00 Acute cystitis without hematuria (principal); R74.8 Abnormal levels of other serum enzymes; I10 Essential (primary) hypertension; I25.2 Old myocardial infarction; I25.10 Atherosclerotic heart disease of native coronary artery without angina pectoris; E78.5 Hyperlipidemia, unspecified; Z79.01 Long term (current) use of anticoagulants; Z79.82 Long term (current) use of aspirin; Z88.5 Allergy status to narcotic agent
CPT/HCPCS: 36415; 74176; 76705; 80053; 81001; 81025; 85025

== ENCOUNTER 2021-12-05 11:11 | Emergency (ER) | payer MEDICAID ==
[~2021-12-05] VITALS: Ht 157.5 cm; Wt 104.5 kg
[~2021-12-05 11:11] MED LIST changes: +CEPH-322 PO
[2021-12-05 11:36] VITALS: BP 174/81
[2021-12-05] MEDS ORDERED: methylPREDNISolone SOD SUCC 125 MG/2 ML VL IM ONE (12:15)
[2021-12-05] MEDS ORDERED: diphenhdrAMINE HCL 50 MG/1 ML VL IM ONE (12:15)
[2021-12-05 12:34] LABS: Urine Bacteria NONE SEEN /hpf (None Seen); Urine Blood Negative /uL (Negative); Urine Specific Gravity 1.009 (1.001-1.035); Urine WBC 2 /hpf (0 - 5)
[2021-12-05 12:44] LABS: Basophils # (auto) 0 10 ^3/uL (0-0.2); Basophils % (auto) 0.3 % (0.0-2.0); Eosinophils # (auto) 0.1 10 ^3/uL (0-0.8); Eosinophils % (auto) 0.9 % (0.0-7.0); Hematocrit 43.1 % (36.0-46.0); Hemoglobin 14.6 g/dL (12.2-16.2); Lymphocytes # (auto) 1.7 10 ^3/uL (0.4-5.4); Lymphocytes % (auto) 22.4 % (10.0-50.0); Mean Corpuscular Hemoglobin 27.7 pg (28.0-32.0); Mean Corpuscular Hgb Conc. 33.8 g/dL (32.0-36.0); Monocytes # (auto) 0.6 10 ^3/uL (0-1.3); Monocytes % (auto) 7.4 % (0.0-12.0); Neutrophils # (auto) 5.2 10 ^3/uL (1.6-8.6); Nucleated Red Blood Cells % 0.1 %; Red Blood Cells 5.25 10^6/uL (4.0-5.20); Red Cell Distribution Width 13.7 % (11.8-14.3); White Blood Cell 7.5 10^3/uL (4.4-10.8)
[2021-12-05 12:47] LABS: Alcohol, Urine < 3.0 mg/dL (0-10); Amphetamine Screen, Urine NEGATIVE (NEGATIVE); Barbiturate Scree,Urine NEGATIVE (NEGATIVE); Benzodiazephine Screen, Urine NEGATIVE (NEGATIVE); Cannabinoid Screen, Urine NEGATIVE (NEGATIVE); Cocaine Screen, Urine NEGATIVE (NEGATIVE); Opiate Scree,Urine NEGATIVE (NEGATIVE); Phencyclidine Screen, Urine NEGATIVE (NEGATIVE)
[2021-12-05 12:54] LABS: Albumin 3.5 g/dL (3.4-5.0); Calcium 8.9 mg/dL (8.5-10.1); Potassium 3.7 mmol/L (3.5-5.1)
[2021-12-05 12:58] LABS: BUN/Creatinine Ratio 23.6; Bilirubin, Total 0.4 mg/dL (0.2-1.0); Total Protein 7.3 g/dL (6.4-8.2)
[2021-12-05] MEDS ORDERED: TRIA0.1O TOP (13:16)
[2021-12-05] MEDS ORDERED: HYDR50CA PO (13:16)
== END 2021-12-05 13:24 | disposition home or self-care (01) ==
LOC: ER 11:11
DX: L29.9 Pruritus, unspecified (principal); R73.9 Hyperglycemia, unspecified; I10 Essential (primary) hypertension; I25.10 Atherosclerotic heart disease of native coronary artery without angina pectoris; E78.5 Hyperlipidemia, unspecified; Z79.82 Long term (current) use of aspirin; Z79.01 Long term (current) use of anticoagulants; Z79.899 Other long term (current) drug therapy; Z88.5 Allergy status to narcotic agent
CPT/HCPCS: 36415; 80053; 80307; 81001; 85025; 96372; 99283; J1200

== ENCOUNTER 2022-07-21 10:34 | Emergency (ER) | payer MEDICAID ==
[~2022-07-21] VITALS: Ht 157.5 cm; Wt 101.1 kg
[~2022-07-21 10:34] MED LIST changes: +HYDR50CA PO; +TRIA0.1O TOP
[2022-07-21 12:20] LABS: Basophils # (auto) 0 10 ^3/uL (0-0.2); Basophils % (auto) 0.3 % (0.0-2.0); Eosinophils # (auto) 0.1 10 ^3/uL (0-0.8); Eosinophils % (auto) 1.1 % (0.0-7.0); Hematocrit 43.7 % (36.0-46.0); Hemoglobin 14.7 g/dL (12.2-16.2); Lymphocytes # (auto) 1.6 10 ^3/uL (0.4-5.4); Lymphocytes % (auto) 25.5 % (10.0-50.0); Mean Corpuscular Hemoglobin 27.4 pg (28.0-32.0); Mean Corpuscular Hgb Conc. 33.6 g/dL (32.0-36.0); Mean Corpuscular Volume 81.7 fL (80.0-100.0); Monocytes # (auto) 0.4 10 ^3/uL (0-1.3); Monocytes % (auto) 6.5 % (0.0-12.0); Neutrophils # (auto) 4.1 10 ^3/uL (1.6-8.6); Neutrophils % (auto) 66.6 % (37.0-80.0); Nucleated Red Blood Cells % 0.1 %; Red Blood Cells 5.35 10^6/uL (4.0-5.20); Red Cell Distribution Width 14.1 % (11.8-14.3); White Blood Cell 6.1 10^3/uL (4.4-10.8)
[2022-07-21] MEDS ORDERED: IBU600T PO (12:47)
[2022-07-21 12:48] LABS: Albumin 3.9 g/dL (3.4-5.0); Calcium 9.4 mg/dL (8.5-10.1); Potassium 4.1 mmol/L (3.5-5.1)
[2022-07-21 12:52] LABS: Bilirubin, Total 0.5 mg/dL (0.2-1.0); Total Protein 7.1 g/dL (6.4-8.2)
[2022-07-21] MEDS ORDERED: HYDROcodone-ACET 5/325MG TAB PO ONE (13:00)
[2022-07-21 13:15] LABS: Urine Bacteria FEW /hpf (None Seen); Urine Blood Negative /uL (Negative); Urine Specific Gravity 1.007 (1.001-1.035); Urine WBC 6 /hpf (0 - 5)
[2022-07-21] MEDS ORDERED: NITR-87 PO (14:46)
[2022-07-21 15:00] VITALS: BP 144/78
[2022-07-21] MEDS ORDERED: ONDA-144 PO (15:06)
== END 2022-07-21 15:12 | disposition home or self-care (01) ==
LOC: ER 10:34
DX: R51.9 Headache, unspecified (principal); N39.0 Urinary tract infection, site not specified; I10 Essential (primary) hypertension; I25.10 Atherosclerotic heart disease of native coronary artery without angina pectoris; E78.5 Hyperlipidemia, unspecified
CPT/HCPCS: 36415; 70450; 80053; 81001; 84484; 85025

== ENCOUNTER 2022-08-13 11:38 | Emergency (ER) | payer MEDICAID ==
[~2022-08-13] VITALS: Ht 157.5 cm; Wt 100.9 kg
[~2022-08-13 11:38] MED LIST changes: -CEPH-322 PO; +CEPH250C PO; +IBU600T PO; +NITR-87 PO; +ONDA-144 PO
[2022-08-13 13:18] LABS: Urine Bacteria FEW /hpf (None Seen); Urine Blood Negative /uL (Negative); Urine Mucus FEW (None Seen); Urine Specific Gravity 1.003 (1.001-1.035); Urine WBC 2 /hpf (0 - 5)
[2022-08-13 13:21] LABS: Basophils # (auto) 0 10 ^3/uL (0-0.2); Basophils % (auto) 0.3 % (0.0-2.0); Eosinophils # (auto) 0.1 10 ^3/uL (0-0.8); Eosinophils % (auto) 1.6 % (0.0-7.0); Hematocrit 41.5 % (36.0-46.0); Hemoglobin 14.1 g/dL (12.2-16.2); Lymphocytes # (auto) 1.8 10 ^3/uL (0.4-5.4); Lymphocytes % (auto) 26.6 % (10.0-50.0); Mean Corpuscular Hgb Conc. 33.8 g/dL (32.0-36.0); Mean Corpuscular Volume 82.8 fL (80.0-100.0); Monocytes # (auto) 0.5 10 ^3/uL (0-1.3); Neutrophils # (auto) 4.4 10 ^3/uL (1.6-8.6); Neutrophils % (auto) 64.5 % (37.0-80.0); Nucleated Red Blood Cells % 0.1 %; Red Blood Cells 5.02 10^6/uL (4.0-5.20); White Blood Cell 6.8 10^3/uL (4.4-10.8)
[2022-08-13 13:43] LABS: Albumin 3.8 g/dL (3.4-5.0); Calcium 8.7 mg/dL (8.5-10.1)
[2022-08-13 13:46] LABS: BUN/Creatinine Ratio 21.6 (10.0-20.0); Bilirubin, Total 0.5 mg/dL (0.2-1.0)
[2022-08-13] MEDS ORDERED: IPRATROPIUM BROM 0.5 MG/2.5ML INH SOL NEB ONE (15:15)
[2022-08-13] MEDS ORDERED: cefTRIAXone 1GM/50ML D5W 50 ML IV ONE (15:15)
[2022-08-13] MEDS ORDERED: ALBUTEROL SULF 2.5 MG/0.5ML(0.5%) NEB SOLN NEB ONE (15:15)
[2022-08-13] MEDS ORDERED: DexAMETHasone SOD PHOS 10MG/1ML VIAL INJ IM ONE (15:15)
[2022-08-13] MEDS ORDERED: PRED20TA2 PO (19:28)
[2022-08-13] MEDS ORDERED: PENICILLIN G BENZ 1200000 UNITS/2 ML SYRG IM ONE (19:30)
[2022-08-13] MEDS ORDERED: KETOROLAC TROMETH 30 MG/ML 1ML VIAL IV ONE (19:45)
[2022-08-13] MEDS ORDERED: ONDANSETRON ODT 4 MG TAB PO ONE (19:45)
[2022-08-13] MEDS ORDERED: HYDROcodone-ACET 5/325MG TAB PO ONE (19:45)
[2022-08-13] MEDS ORDERED: AUG875T PO (21:22)
[2022-08-13 22:46] VITALS: BP 133/67
== END 2022-08-13 22:47 | disposition home or self-care (01) ==
LOC: ER 11:38
DX: J32.9 Chronic sinusitis, unspecified (principal); R05.9 Cough, unspecified; J45.909 Unspecified asthma, uncomplicated; I10 Essential (primary) hypertension; I25.10 Atherosclerotic heart disease of native coronary artery without angina pectoris; E78.5 Hyperlipidemia, unspecified; Z98.890 Other specified postprocedural states
CPT/HCPCS: 36415; 70450; 71045; 80053; 81001; 84484; 85025; 87070; 87880; 94640; 96365; 96372; 99285; J0696; J1100; J7644; Q0162; J1885

== ENCOUNTER 2022-12-16 16:45 | Emergency (ER) | payer MEDICAID ==
[~2022-12-16] VITALS: Ht 154.9 cm; Wt 101.8 kg
[~2022-12-16 16:45] MED LIST changes: +AUG875T PO; +PRED20TA2 PO
[2022-12-16 16:52] VITALS: BP 141/87; RESP 18; O2SAT 97
[2022-12-16 17:37] VITALS: PULSE 88
[2022-12-16] MEDS ORDERED: ASPirin 325 MG TAB PO ONE (17:45)
[2022-12-16] MEDS ORDERED: NITROGLYCERIN 0.4 MG SL TAB SL ONE (17:45)
[2022-12-16 18:00] LABS: Basophils # (auto) 0 10 ^3/uL (0-0.2); Basophils % (auto) 0.4 % (0.0-2.0); Eosinophils # (auto) 0.1 10 ^3/uL (0-0.8); Eosinophils % (auto) 1.1 % (0.0-7.0); Hematocrit 44.4 % (36.0-46.0); Hemoglobin 15.2 g/dL (12.2-16.2); Lymphocytes # (auto) 2.1 10 ^3/uL (0.4-5.4); Lymphocytes % (auto) 25.8 % (10.0-50.0); Mean Corpuscular Hemoglobin 28.2 pg (28.0-32.0); Mean Corpuscular Hgb Conc. 34.1 g/dL (32.0-36.0); Mean Corpuscular Volume 82.8 fL (80.0-100.0); Monocytes # (auto) 0.4 10 ^3/uL (0-1.3); Monocytes % (auto) 4.8 % (0.0-12.0); Neutrophils # (auto) 5.5 10 ^3/uL (1.6-8.6); Neutrophils % (auto) 67.9 % (37.0-80.0); Nucleated Red Blood Cells % 0.2 %; Red Blood Cells 5.37 10^6/uL (4.0-5.20); Red Cell Distribution Width 13.4 % (11.8-14.3); White Blood Cell 8.1 10^3/uL (4.4-10.8)
[2022-12-16 18:14] LABS: Alanine Aminotransferase 37 U/L (7-40); Albumin 4.5 g/dL (3.2-4.8); Alkaline Phosphatase 159 U/L (46-116); Anion Gap 8 (5-15); Aspartate Aminotransferase 28 U/L (13-40); BUN/Creatinine Ratio 14.5 (10.0-20.0); Blood Urea Nitrogen 9 mg/dL (9-23); Calcium 9.5 mg/dL (8.5-10.1); Carbon Dioxide 26 mmol/L (20-30); Chloride 105 mmol/L (98-107); Glucose 148 mg/dL (74-106); Sodium 139 mmol/L (136-145)
[2022-12-16 18:15] LABS: Bilirubin, Total 0.5 mg/dL (0.2-1.0); Total Protein 7.3 g/dL (5.7-8.2)
[2022-12-16] MEDS ORDERED: ACETAMINOPHEN 325 MG TAB PO PRN (20:45)
[2022-12-16] MEDS ORDERED: NITROGLYCERIN 0.4 MG SL TAB SL PRN (20:45)
[2022-12-16] MEDS ORDERED: ONDANSETRON HCL 4 MG/2 ML VIAL IV PRN (20:45)
[2022-12-16] MEDS ORDERED: ATORVASTATIN 20 MG TAB PO SCH (22:00)
[2022-12-16] MEDS ORDERED: METOPROLOL TARTRATE 25 MG TAB PO SCH (22:00)
[2022-12-17] MEDS ORDERED: LISINOPRIL 5 MG TAB PO SCH (10:00)
[2022-12-17] MEDS ORDERED: ASPirin 81 mg TAB PO SCH (10:00)
[2022-12-17] MEDS ORDERED: CLOPIDOGREL BISULFATE 75 MG TAB PO SCH (10:00)
[2022-12-17] MEDS ORDERED: ENOXAPARIN SOD 40 MG/0.4 ML SYRINGE SC SCH (10:00)
== END 2022-12-16 21:15 | disposition left against medical advice (07) ==
LOC: ER 16:45
DX: R07.89 Other chest pain (principal); R06.00 Dyspnea, unspecified; I10 Essential (primary) hypertension; E78.5 Hyperlipidemia, unspecified; J45.909 Unspecified asthma, uncomplicated
CPT/HCPCS: 36415; 71046; 80053; 83880; 84484; 85025; 85379; 93005

== ENCOUNTER 2023-03-16 08:26 | Inpatient (IN) | payer MEDICAID ==
[~2023-03-16] VITALS: Ht 157.5 cm; Wt 101.6 kg
[2023-03-16 09:36] LABS: Basophils # (auto) 0 10 ^3/uL (0-0.2); Basophils % (auto) 0.4 % (0.0-2.0); Eosinophils # (auto) 0.1 10 ^3/uL (0-0.8); Eosinophils % (auto) 1.4 % (0.0-7.0); Hematocrit 42.3 % (36.0-46.0); Hemoglobin 14.3 g/dL (12.2-16.2); Lymphocytes # (auto) 1.2 10 ^3/uL (0.4-5.4); Lymphocytes % (auto) 21.9 % (10.0-50.0); Mean Corpuscular Hemoglobin 27.8 pg (28.0-32.0); Mean Corpuscular Hgb Conc. 33.9 g/dL (32.0-36.0); Mean Corpuscular Volume 82.2 fL (80.0-100.0); Monocytes # (auto) 0.4 10 ^3/uL (0-1.3); Monocytes % (auto) 6.9 % (0.0-12.0); Neutrophils # (auto) 3.9 10 ^3/uL (1.6-8.6); Neutrophils % (auto) 69.4 % (37.0-80.0); Nucleated Red Blood Cells % 0.2 %; Red Blood Cells 5.15 10^6/uL (4.0-5.20); Red Cell Distribution Width 13.6 % (11.8-14.3); White Blood Cell 5.6 10^3/uL (4.4-10.8)
[2023-03-16 09:42] LABS: Urine Bacteria FEW /hpf (None Seen); Urine Blood Negative /uL (Negative); Urine Clarity Clear (Clear); Urine Protein, UAD Negative (Negative); Urine Urobilinogen Normal (Negative); Urine WBC 5 /hpf (0 - 5)
[2023-03-16 09:43] LABS: Urine Color Yellow (Yellow)
[2023-03-16 09:47] LABS: Alanine Aminotransferase 38 U/L (7-40); Albumin 4.4 g/dL (3.2-4.8); Alkaline Phosphatase 149 U/L (46-116); Anion Gap 11 (5-15); Aspartate Aminotransferase 24 U/L (13-40); BUN/Creatinine Ratio 14.5 (10.0-20.0); Bilirubin, Total 0.7 mg/dL (0.2-1.0); Blood Urea Nitrogen 9 mg/dL (9-23); Calcium 9.6 mg/dL (8.5-10.1); Carbon Dioxide 26 mmol/L (20-30); Chloride 106 mmol/L (98-107); Glucose 173 mg/dL (74-106); Potassium 3.7 mmol/L (3.5-5.1); Sodium 143 mmol/L (136-145); Total Protein 6.8 g/dL (5.7-8.2)
[2023-03-16 10:13] LABS: INR 0.95 (0.9-1.15); Partial Thromboplastin Time 28.9 SEC (24.5-34.5); Prothrombin Time 10.2 sec (9.3-11.8)
[2023-03-16 12:17] LABS: Erythrocyte Sedimentation Rate 11 mm/hr (0-20)
[2023-03-16] MEDS ORDERED: NITROGLYCERIN 0.4 MG SL TAB SL PRN (14:00)
[2023-03-16] MEDS ORDERED: ONDANSETRON HCL 4 MG/2 ML VIAL IV PRN (14:00)
[2023-03-16] MEDS ORDERED: MORPHINE SULFATE INJ 2 MG/ml SYRG IV PRN (14:00)
[2023-03-16] MEDS ORDERED: DOCUSATE SOD 100 MG CAP PO PRN (14:00)
[2023-03-16] MEDS ORDERED: EZET-10 PO (14:37)
[2023-03-16] MEDS ORDERED: ATOR40TA52 PO (14:37)
[2023-03-16] MEDS ORDERED: MONT-8 PO (14:37)
[2023-03-16] MEDS ORDERED: LISI10TA34 PO (14:37)
[2023-03-16] MEDS ORDERED: cefTRIAXone 1GM/50ML D5W 50 ML IV ONE (14:45)
[2023-03-16] MEDS ORDERED: DEXTROSE (50%) 50ML SYRG IV PRN (14:45)
[2023-03-16 16:10] VITALS: PULSE 78; RESP 16; O2SAT 98
[2023-03-16] MEDS ORDERED: LISINOPRIL 10 MG TAB PO ONE (16:15)
[2023-03-16] MEDS ORDERED: hydrALAZINE HCL 20 MG/ML VL IV PRN (16:15)
[2023-03-16] MEDS: ACETAMINOPHEN 325 MG TAB PO PRN (16:39)
[2023-03-16] MEDS: ACCU-CHEK COMFORT CURVE STRIP VI SCH ×2 (16:45→20:49)
[2023-03-16] MEDS: InsuLIN REG 1unit/0.01ml Soln (100units/ml) SC SCH ×2 (16:45→20:48)
[2023-03-16 17:51] VITALS: BP 146/69; PULSE 79; RESP 18; TEMP 98.4; O2SAT 96
[2023-03-16 18:01] VITALS: O2SAT 97
[2023-03-16 20:00] VITALS: BP 173/88; PULSE 80; PULSE 81; RESP 16; RESP 18; TEMP 36.9
[2023-03-16] MEDS: HYDROcodone-ACET 5/325MG TAB PO PRN (21:07)
[2023-03-16 22:00] VITALS: BP 155/83; PULSE 69; RESP 18; TEMP 97.8; O2SAT 96
[2023-03-17] VITALS (8 sets, daily range): BP systolic 111–152; BP diastolic 64–95; PULSE 64–90; RESP 16–19; TEMP 97.5–98.5; O2SAT 95–97
[2023-03-17] MEDS: InsuLIN REG 1unit/0.01ml Soln (100units/ml) SC SCH ×4 (05:21→22:00)
[2023-03-17] MEDS: ACCU-CHEK COMFORT CURVE STRIP VI SCH ×4 (05:24→22:00)
[2023-03-17] MEDS: HYDROcodone-ACET 5/325MG TAB PO PRN ×2 (06:28→14:15)
[2023-03-17 06:43] LABS: Alanine Aminotransferase 31 U/L (7-40); Alkaline Phosphatase 120 U/L (46-116); Anion Gap 9 (5-15); BUN/Creatinine Ratio 14.3 (10.0-20.0); Blood Urea Nitrogen 8 mg/dL (9-23); Calcium 8.9 mg/dL (8.7-10.4); Carbon Dioxide 23 mmol/L (20-30); Chloride 107 mmol/L (98-107); Glucose 129 mg/dL (74-106); Potassium 3.8 mmol/L (3.5-5.1); Sodium 139 mmol/L (136-145)
[2023-03-17 06:44] LABS: Aspartate Aminotransferase 23 U/L (13-40); Bilirubin, Total 0.6 mg/dL (0.2-1.0); Total Protein 6.4 g/dL (5.7-8.2)
[2023-03-17 07:25] LABS: Basophils # (auto) 0 10 ^3/uL (0-0.2); Basophils % (auto) 0.4 % (0.0-2.0); Eosinophils # (auto) 0.1 10 ^3/uL (0-0.8); Eosinophils % (auto) 2.4 % (0.0-7.0); Hemoglobin 13.7 g/dL (12.2-16.2); Lymphocytes # (auto) 1.9 10 ^3/uL (0.4-5.4); Lymphocytes % (auto) 33.7 % (10.0-50.0); Mean Corpuscular Hemoglobin 27.4 pg (28.0-32.0); Mean Corpuscular Hgb Conc. 33.4 g/dL (32.0-36.0); Mean Corpuscular Volume 82.1 fL (80.0-100.0); Monocytes # (auto) 0.5 10 ^3/uL (0-1.3); Monocytes % (auto) 8.5 % (0.0-12.0); Neutrophils # (auto) 3.1 10 ^3/uL (1.6-8.6); Nucleated Red Blood Cells % 0.2 %; Red Blood Cells 4.99 10^6/uL (4.0-5.20); Red Cell Distribution Width 13.4 % (11.8-14.3); White Blood Cell 5.7 10^3/uL (4.4-10.8)
[2023-03-17] MEDS: ASPirin 81 mg TAB PO SCH (09:47)
[2023-03-17] MEDS: ATORVASTATIN 20 MG TAB PO SCH (09:47)
[2023-03-17] MEDS: amLODIPine BESYLATE 5 MG TAB PO SCH (09:48)
[2023-03-17] MEDS: MONTELUKAST SODIUM 10 MG TAB PO SCH (09:48)
[2023-03-17] MEDS: ENOXAPARIN SOD 40 MG/0.4 ML SYRINGE SC SCH (09:49)
[2023-03-17] MEDS: LISINOPRIL 10 MG TAB PO SCH (09:49)
[2023-03-17] MEDS: cefTRIAXone 1GM/50ML D5W 50 ML IV SCH (10:20)
[2023-03-17] MEDS ORDERED: METOPROLOL SUCCINATE XL 50 MG TAB PO ONE (10:30)
[2023-03-17] MEDS ORDERED: METO25TA36 PO (18:19)
[2023-03-18] MEDS: ACETAMINOPHEN 325 MG TAB PO PRN (01:47)
[2023-03-18 05:00] VITALS: BP_SYST 0; BP_SYST 116; BP_DIAS 68; PULSE 68; RESP 18; TEMP 98.2; O2SAT 95
[2023-03-18] MEDS: ACCU-CHEK COMFORT CURVE STRIP VI SCH (06:23)
[2023-03-18] MEDS: InsuLIN REG 1unit/0.01ml Soln (100units/ml) SC SCH (06:23)
[2023-03-18 07:34] LABS: Triglycerides 109 mg/dL (< 150)
[2023-03-18 07:35] LABS: LDL Cholesterol 88 mg/dL (< 100)
[2023-03-18 07:36] LABS: Cholesterol 133 mg/dL (< 200); HDL Cholesterol 32 mg/dL (40-59)
[2023-03-18 08:00] VITALS: PULSE 65; RESP 18; O2SAT 95
[2023-03-18 09:00] VITALS: BP 116/71; PULSE 65; RESP 18; TEMP 97.6; O2SAT 95
[2023-03-18] MEDS: ATORVASTATIN 20 MG TAB PO SCH (09:43)
[2023-03-18] MEDS ORDERED: AML5T PO (09:44)
[2023-03-18] MEDS: amLODIPine BESYLATE 5 MG TAB PO SCH (09:44)
[2023-03-18] MEDS: MONTELUKAST SODIUM 10 MG TAB PO SCH (09:45)
[2023-03-18] MEDS: ENOXAPARIN SOD 40 MG/0.4 ML SYRINGE SC SCH (09:45)
[2023-03-18] MEDS: cefTRIAXone 1GM/50ML D5W 50 ML IV SCH (09:45)
[2023-03-18] MEDS: ASPirin 81 mg TAB PO SCH (09:45)
[2023-03-18] MEDS: LISINOPRIL 10 MG TAB PO SCH (09:45)
[2023-03-18] MEDS ORDERED: CEPH500C PO (09:48)
[2023-03-18] MEDS ORDERED: METOPROLOL SUCCINATE XL 50 MG TAB PO SCH (10:00)
[2023-03-18 12:42] VITALS: BP 116/71; PULSE 65; RESP 18; TEMP 98.5; O2SAT 95
[2023-03-18 13:00] VITALS: BP 116/76; PULSE 71; RESP 18; TEMP 98.1; O2SAT 96
== END 2023-03-18 13:25 | disposition home or self-care (01) | DRG 463 ==
LOC: ER 08:26 → TELE-EAST 13:52 → TELE 13:52 → TELE-EAST 17:20
PROVIDERS: ADMIT Nurse Practitioner Family; ATTEND Internal Medicine Geriatric Medicine
DX: N30.00 Acute cystitis without hematuria (principal); I11.0 Hypertensive heart disease with heart failure; I25.110 Atherosclerotic heart disease of native coronary artery with unstable angina pectoris; I50.9 Heart failure, unspecified; R07.89 Other chest pain; E11.9 Type 2 diabetes mellitus without complications; E66.01 Morbid (severe) obesity due to excess calories; E78.5 Hyperlipidemia, unspecified; J06.9 Acute upper respiratory infection, unspecified; J45.909 Unspecified asthma, uncomplicated; I25.2 Old myocardial infarction; Z79.82 Long term (current) use of aspirin; Z79.899 Other long term (current) drug therapy; Z87.891 Personal history of nicotine dependence; Z95.5 Presence of coronary angioplasty implant and graft; Z82.49 Family history of ischemic heart disease and other diseases of the circulatory system; Z80.9 Family history of malignant neoplasm, unspecified; Z88.5 Allergy status to narcotic agent; Z68.41 Body mass index [BMI] 40.0-44.9, adult
CPT/HCPCS: 36415; 71046; 80053; 80061; 81001; 82962; 84443; 84484; 85025; 85610; 85652; 85730; 87086; 93005; 93886; G0378

== ENCOUNTER 2023-12-16 19:03 | Emergency (ER) | payer MEDICAID ==
[~2023-12-16] VITALS: Ht 157.5 cm; Wt 87.3 kg
[~2023-12-16 19:03] MED LIST changes: +AML5T PO; +ATOR40TA52 PO; -AUG875T PO; -CEPH250C PO; +CEPH500C PO; -CLOP75TA28 PO; +EZET-10 PO; -HYDR50CA PO; -IBU600T PO; +LISI10TA34 PO; +METO25TA36 PO; +MONT-8 PO; -NITR-87 PO; -PRED20TA2 PO; -TRIA0.1O TOP
[2023-12-16 20:09] LABS: Urine Bacteria None Seen /hpf (None Seen)
[2023-12-16 20:20] LABS: Urine Blood Negative /uL (Negative); Urine Clarity Clear (Clear); Urine Color Light-Yellow (Yellow); Urine Protein, UAD Negative (Negative); Urine Specific Gravity 1.026 (1.001-1.035); Urine Urobilinogen Normal (Negative); Urine WBC 20 /hpf (0 - 5); Urine pH 5.5 (5.0-9.0)
[2023-12-16 20:31] LABS: Basophils # (auto) 0 10 ^3/uL (0-0.2); Basophils % (auto) 0.4 % (0.0-2.0); Eosinophils # (auto) 0.1 10 ^3/uL (0-0.8); Hematocrit 45.9 % (36.0-46.0); Hemoglobin 15.7 g/dL (12.2-16.2); Lymphocytes # (auto) 1.4 10 ^3/uL (0.4-5.4); Mean Corpuscular Hemoglobin 28.5 pg (28.0-32.0); Mean Corpuscular Hgb Conc. 34.2 g/dL (32.0-36.0); Mean Corpuscular Volume 83.4 fL (80.0-100.0); Monocytes # (auto) 0.5 10 ^3/uL (0-1.3); Monocytes % (auto) 6.8 % (0.0-12.0); Neutrophils # (auto) 5.7 10 ^3/uL (1.6-8.6); Neutrophils % (auto) 73.8 % (37.0-80.0); Nucleated Red Blood Cells % 0.2 %; Platelet Count (auto) 235 10^3/uL (140-450); Red Cell Distribution Width 14.2 % (11.8-14.3); White Blood Cell 7.7 10^3/uL (4.4-10.8)
[2023-12-16] MEDS: KETOROLAC TROMETH 30 MG/ML 1ML VIAL IV ONE (20:50)
[2023-12-16] MEDS: SODIUM CHLORIDE 0.9% 1,000 ML IV ONE (20:50)
[2023-12-16] MEDS: LOPERAMIDE HCL 2 MG CAP/TAB PO ONE (20:51)
[2023-12-16 21:00] LABS: Alanine Aminotransferase 28 U/L (7-40); Albumin 4.8 g/dL (3.2-4.8); Alkaline Phosphatase 139 U/L (46-116); Anion Gap 8 (5-15); Aspartate Aminotransferase 19 U/L (13-40); BUN/Creatinine Ratio 19.1 (10.0-20.0); Bilirubin, Total 0.6 mg/dL (0.2-1.0); Blood Urea Nitrogen 13 mg/dL (9-23); Calcium 10.1 mg/dL (8.7-10.4); Carbon Dioxide 26 mmol/L (20-31); Chloride 107 mmol/L (98-107); Glucose 112 mg/dL (74-106); Lipase 40 U/L (12-53); Potassium 4.1 mmol/L (3.5-5.1); Sodium 141 mmol/L (136-145); Total Protein 7.7 g/dL (5.7-8.2)
[2023-12-16] MEDS: ONDANSETRON HCL 4 MG/2 ML VIAL IV ONE (21:00)
[2023-12-16 22:00] VITALS: PULSE 16; RESP 16; TEMP 98.3; O2SAT 97
[2023-12-17] MEDS ORDERED: LOPE2CAP16 PO (01:07)
[2023-12-17] MEDS ORDERED: PANT40TA2 PO (01:07)
[2023-12-17] MEDS ORDERED: ZOFR4T PO (01:50)
[2023-12-17 02:00] VITALS: BP 128/68; PULSE 68; RESP 16; O2SAT 96
== END 2023-12-17 03:53 | disposition home or self-care (01) ==
LOC: ER 19:03
DX: K52.9 Noninfective gastroenteritis and colitis, unspecified (principal); J45.909 Unspecified asthma, uncomplicated; I10 Essential (primary) hypertension; E78.5 Hyperlipidemia, unspecified; Z79.82 Long term (current) use of aspirin; Z79.899 Other long term (current) drug therapy; Z88.5 Allergy status to narcotic agent
CPT/HCPCS: 36415; 74176; 80053; 81001; 83690; 84484; 85025; 96361; 96374; 96375; 99285; J1885; J2405; J7030